=== PATIENT | female | born 1945 | race Caucasian/White ===

== ENCOUNTER 2018-03-26 06:22 | Inpatient (IN) | payer MEDICARE, OTHER ==
[2018-03-26] MEDS: SOD CHLORIDE 0.9% 100 ML, TRANEXAMIC ACID 3,000 MG IRR (07:00)
[2018-03-26] MEDS: CEFAZOLIN 2 GM/50 ML (PMX) 50 ML IVPB (07:00)
[2018-03-26] MEDS: traMADol 50 MG TAB PO (08:28)
[2018-03-26] MEDS: GABAPENTIN 300 MG CAP PO ×2 (08:28→20:38)
[2018-03-26] MEDS: DEXAMETHASONE 1 MG TAB PO (08:28)
[2018-03-26] MEDS: TRANEXAMIC ACID 1,000 MG in DEXTROSE 5% 100 ML IVPB (09:18)
[2018-03-26] MEDS ORDERED: FENTAnyl 50 MCG/ML VIAL (09:20)
[2018-03-26] MEDS ORDERED: MEPERIDINE 25 MG INJ IV (09:30)
[2018-03-26] MEDS ORDERED: LABETALOL HCL 20MG INJ IV (09:30)
[2018-03-26] MEDS ORDERED: FENTAnyl 50 MCG/ML VIAL IV (09:30)
[2018-03-26] MEDS ORDERED: METOCLOPRAMIDE 10 MG INJ IV (09:30)
[2018-03-26] MEDS ORDERED: CLINDAMYCIN 900 MG/D5W (PMX) 50 ML IVPB (09:41)
[2018-03-26] MEDS ORDERED: PROPOFOL 20 ML (09:41)
[2018-03-26] MEDS ORDERED: LIDOCAINE 100 MG SYRINGE (09:41)
[2018-03-26] MEDS ORDERED: SUGAMMADEX SODIUM 200 MG/2 ML VIAL IV (09:41)
[2018-03-26] MEDS ORDERED: SUCCINYLCHOLINE CHLORIDE 100 MG/5 ML SYG IV (09:41)
[2018-03-26] MEDS ORDERED: ROCURONIUM 50 MG INJ (09:41)
[2018-03-26] MEDS ORDERED: CA CHLORIDE 10% 10 ML SYRINGE (09:45)
[2018-03-26] MEDS ORDERED: THROMBIN 5000 UNIT VIAL (09:45)
[2018-03-26] MEDS: POLYMYXIN/BACITRACIN 1L IRRIG IRR (09:52)
[2018-03-26] MEDS: BUPIVACAINE 0.5% (SDV) 30 ML, morphine SULFATE (PF) 8 MG, EPINEPHrine 0.3 MG, KETOROLAC... IRR (09:52)
[2018-03-26] MEDS ORDERED: ONDANSETRON 4 MG INJ IV (10:30)
[2018-03-26] MEDS ORDERED: DIPHENHYDRAMINE 50 MG INJ IV (10:30)
[2018-03-26] MEDS ORDERED: MAGNESIUM HYDROXIDE 30ML CUP PO (10:30)
[2018-03-26] MEDS ORDERED: OXYCODONE/ACETAMINOPHEN (5/325) TAB PO ×2 (10:30)
[2018-03-26] MEDS ORDERED: ZOLPIDEM 5 MG TAB PO (10:30)
[2018-03-26] MEDS ORDERED: ACETAMINOPHEN 500 MG TAB PO (10:30)
[2018-03-26] MEDS ORDERED: morphine 2 MG INJ IV (10:30)
[2018-03-26] MEDS ORDERED: KETOROLAC 15 MG INJ IV (10:30)
[2018-03-26] MEDS: ONDANSETRON 4 MG INJ IV (11:36)
[2018-03-26] MEDS: TRANEXAMIC ACID 1,000 MG in DEXTROSE 5% 100 ML IV (11:49)
[2018-03-26] MEDS ORDERED: DEXAMETHASONE 2 MG TAB PO (12:00)
[2018-03-26] MEDS: HYDROmorphONE 1 MG/5 ML IV SYRINGE IV ×3 (12:06→12:35)
[2018-03-26] MEDS: CEFAZOLIN 1 GM/50 ML (PMX) 50 ML IVPB ×2 (12:09→20:03)
[2018-03-26] MEDS: FENTAnyl 50 MCG/ML VIAL IV ×3 (13:05→13:25)
[2018-03-26 13:22] LABS: CREATINE KINASE 215 IU/L (23-200)
[2018-03-26 13:34] LABS: CK INDEX 1.8; CK-MB 3.97 ng/ml (0.0-2.4); TROPONIN-I < 0.012 ng/ml (0.000-0.120)
[2018-03-26] MEDS ORDERED: LOSARTAN 25 MG TAB PO (14:30)
[2018-03-26] MEDS: LISINOPRIL 5 MG TAB PO (14:30)
[2018-03-26] MEDS: ATORVASTATIN 10 MG TAB PO (20:37)
[2018-03-26] MEDS: SENNA/DOCUSATE NA (8.6MG/50MG) TAB PO (20:38)
[2018-03-26] MEDS: LAMOTRIGINE 100 MG TAB PO (21:59)
[2018-03-26] MEDS: DEXAMETHASONE 4 MG TAB PO (22:00)
[2018-03-26] MEDS: LACTATED RINGER'S 1,000 ML IV ×2 (22:01→23:00)
[2018-03-26] MEDS: morphine 2 MG INJ IV (22:02)
[2018-03-27] MEDS: DEXAMETHASONE 4 MG TAB PO ×2 (02:39→05:26)
[2018-03-27] MEDS: CEFAZOLIN 1 GM/50 ML (PMX) 50 ML IVPB (02:39)
[2018-03-27] MEDS: LEVOTHYROXINE 75 MCG TAB PO (06:39)
[2018-03-27] MEDS: SENNA/DOCUSATE NA (8.6MG/50MG) TAB PO (08:18)
[2018-03-27] MEDS: ASPIRIN 81 MG TAB PO (08:18)
[2018-03-27] MEDS: CITALOPRAM 20 MG TAB PO (08:18)
[2018-03-27] MEDS: LAMOTRIGINE 100 MG TAB PO (08:18)
[2018-03-27] MEDS: PANTOPRAZOLE (EC) 40 MG TAB PO (08:18)
[2018-03-27] MEDS: LISINOPRIL 5 MG TAB PO (08:19)
[2018-03-27] MEDS: LACTATED RINGER'S 1,000 ML IV (08:19)
[2018-03-27] MEDS ORDERED: LISINOPRIL 5 MG TAB PO (09:00)
== END 2018-03-27 10:18 | disposition home or self-care (01) | DRG 502 ==
LOC: SDS 06:22 → REC 10:58 → TEL 18:33
PROC: 0KXP0ZZ Transfer Left Hip Muscle, Open Approach (ICD-10-PCS; principal; 2018-03-26 09:00)
PROC: 0KQP0ZZ Repair Left Hip Muscle, Open Approach (ICD-10-PCS; 2018-03-26 09:00)
PROC: 0MBM0ZZ Excision of Left Hip Bursa and Ligament, Open Approach (ICD-10-PCS; 2018-03-26 09:00)
DX: S76.012A Strain of muscle, fascia and tendon of left hip, initial encounter (principal); X58.XXXA Exposure to other specified factors, initial encounter; M70.62 Trochanteric bursitis, left hip; I10 Essential (primary) hypertension; E78.5 Hyperlipidemia, unspecified; Z86.73 Personal history of transient ischemic attack (TIA), and cerebral infarction without residual deficits; K21.9 Gastro-esophageal reflux disease without esophagitis
CPT/HCPCS: 72170; 82550; 82553; 84484; 86999; 93005; 97161